=== PATIENT | male | born 1995 | race Caucasian/White ===

== ENCOUNTER 2017-05-30 17:36 | Emergency (ER) | payer BC ==
[2017-05-30 18:09] VITALS: BP 137/82
--- NOTE | 2017-05-30 18:52 | EDM.PDOCBH ---
ED HPI GENERAL MEDICAL PROBLEM - General Chief Complaint: Behavioral/Psych Stated Complaint: ANXIETY Time Seen by Provider: 05/30/17 18:10 Source of Information: Reports: Patient, RN Notes Reviewed - History of Present Illness INITIAL COMMENTS - FREE TEXT/NARRATIVE: 22-year-old male comes in with anxiety. He states he is been in [facility] recently, had been taking Lexapro prior to entering [facility]. During his time at [facility] that medication was not given. He states he was given "Vistaril". He states it did make him sleepy but he did also not like call "that made him feel". He is here today hoping to get started back on the Lexapro. He states he had previously been on that for about 2 years and believes that he actually had done quite well with that. At this time he has no suicidal thoughts or anything of that nature. No other complaints or concerns at this time - Related Data Allergies Allergy/AdvReac Type Severity Reaction Status Date / Time No Known Allergies Allergy Verified 05/30/17 18:09 Home Meds: Home Meds Escitalopram [Lexapro] 10 mg PO DAILY #30 tablet 05/30/17 [Rx] Past Medical History - Past Health History Medical/Surgical History: Denies Medical/Surgical History Other Gastrointestinal History: crohns Psychiatric History: Reports: Addiction, Anxiety Oncologic (Cancer) History: Reports: None - Infectious Disease History Infectious Disease History: Reports: None Social & Family History - Family History Family Medical History: Noncontributory - Tobacco Use Smoking Status *Q: Never Smoker - Caffeine Use Caffeine Use: Reports: Soda - Recreational Drug Use Recreational Drug Use: No Other Recreational Drug Type: Narcotic pain pill use in the past ED ROS GENERAL - Review of Systems Review Of Systems: See Below Constitutional: Reports: No Symptoms HEENT: Denies: Throat Pain, Vision Change Respiratory: Denies: Shortness of Breath Cardiovascular: Denies: Chest Pain GI/Abdominal: Denies: Nausea, Vomiting Musculoskeletal: Reports: No Symptoms Skin: Reports: No Symptoms Neurological: Denies: Headache, Numbness, Tingling Psychiatric: Reports: Anxiety. Denies: Depression, Suicidal Ideation ED EXAM, BEHAVIORAL HEALTH - Physical Exam Exam: See Below General Appearance: Alert, No Apparent Distress Eye Exam: Bilateral Eye: PERRL Throat/Mouth: Normal Inspection, Normal Oropharynx Head: Atraumatic Neck: Supple, Full Range of Motion Respiratory/Chest: No Respiratory Distress, Lungs Clear, Normal Breath Sounds Cardiovascular: Regular Rate, Rhythm GI/Abdominal: Soft, Non-Tender Extremities: Normal Inspection, Normal Range of Motion Neurological: Alert, Normal Mood/Affect, No Motor/Sensory Deficits, Oriented x 3 Psychiatric: Alert, Normal Affect, Normal Cognition, Normal Mood Skin Exam: Warm, Dry, Normal color COURSE, BEHAVIORAL HEALTH COMP - Course Vital Signs: Last Vital Signs Temp 98.5 F 05/30/17 18:02 Pulse 86 05/30/17 18:02 Resp 16 05/30/17 18:02 BP 137/82 05/30/17 18:02 Pulse Ox 98 05/30/17 18:02 Departure - Departure Time of Disposition: 18:49 Disposition: Home, Self-Care 01 Condition: Fair Clinical Impression: Anxiety - Discharge Information Prescriptions: Escitalopram [Lexapro] 10 mg PO DAILY #30 tablet Referrals: PCP,None [Primary Care Provider] - Forms: ED Department Discharge Additional Instructions: Leapro 10 mg daily has been electronically sent to [facility]. I do recomend starting at 5 mg, 1/2 tablet daily for the next 7 days, and than go to the full 10 mg daily. Follow up clinic as needed.
== END 2017-05-30 19:00 | disposition home or self-care (01) ==
LOC: JD.ED 17:36
DX: F41.9 Anxiety disorder, unspecified (principal); Z79.899 Other long term (current) drug therapy
CPT/HCPCS: 99283

== ENCOUNTER 2017-07-14 21:45 | Emergency (ER) | payer BC ==
[2017-07-14 22:09] VITALS: BP 122/79
[2017-07-14] MEDS ORDERED: Sodium Chloride 0.9% 1,000 ML IV SCH (23:00)
[2017-07-15] MEDS ORDERED: Ketorolac 30 MG/ML SDV IVPUSH STA (00:58)
--- NOTE | 2017-07-15 00:58 | EDM.PDOC ---
ED HPI GENERAL MEDICAL PROBLEM - General Chief Complaint: General Stated Complaint: ABDOMINAL PAIN Time Seen by Provider: 07/14/17 22:46 Source of Information: Reports: Patient, RN Notes Reviewed History Limitations: Reports: No Limitations - History of Present Illness INITIAL COMMENTS - FREE TEXT/NARRATIVE: The patient states that he has a history of Crohn disease, diagnosed by colonoscopy in 2014 at [facility]. He states that he was prescribed treatment that he only took for about one month, and has not taken any since, as he has not followed up. He states that he has been expressing abdominal pain and generalized abdominal pain for the past 3-4 weeks, along with sinus congestion and a sore throat for the past 2-3 days. He reports green liquidy bowel movements. He denies recent fever, cough, or urinary symptoms. He does not currently have a PCP, and has not sought medical treatment for his symptoms. The patient asked his nurse for pain medication, stating that Dilaudid works well for him. He would also like something to eat and drink. The medical records indicate that the patient has a history of opioid abuse. Generalized Pain Score (Numeric/FACES): 8 - Related Data Allergies Allergy/AdvReac Type Severity Reaction Status Date / Time No Known Allergies Allergy Verified 07/14/17 22:09 Home Meds: Home Meds . [No Known Home Meds] 07/14/17 [History] Past Medical History Gastrointestinal History: Reports: Inflammatory Bowel Disease (Crohn disease) Musculoskeletal History: Reports: Other (See Below) (Scoliosis) Psychiatric History: Reports: Addiction, Anxiety - Past Surgical History HEENT Surgical History: Reports: Oral Surgery ([place] teeth extraction) Social & Family History - Family History Family Medical History: Noncontributory - Tobacco Use Smoking Status *Q: Current Every Day Smoker Years of Tobacco use: 8 Packs/Tins Daily: 1 - Caffeine Use Caffeine Use: Reports: Soda - Alcohol Use Alcohol Use History: Yes Alcohol Use Frequency: Socially - Recreational Drug Use Recreational Drug Use: Yes Recreational Drug Type: Reports: Dilaudid, Oxycodone, Vicodin - Living Situation & Occupation Living situation: Reports: Single, Other (with his boss) Occupation: Employed ([employer]) ED ROS GENERAL - Review of Systems Review Of Systems: See Below Constitutional: Reports: No Symptoms. Denies: Fever HEENT: Reports: Sinus Problem, Throat Pain Respiratory: Reports: No Symptoms. Denies: Cough Cardiovascular: Reports: No Symptoms Endocrine: Reports: No Symptoms GI/Abdominal: Reports: Abdominal Pain (as per the HPI), Diarrhea : Reports: No Symptoms. Denies: Dysuria Musculoskeletal: Reports: No Symptoms Skin: Reports: No Symptoms Neurological: Reports: No Symptoms Psychiatric: Reports: No Symptoms Hematologic/Lymphatic: Reports: No Symptoms Immunologic: Reports: No Symptoms ED EXAM, GENERAL - Physical Exam Exam: See Below Exam Limited By: No Limitations General Appearance: Alert, WD/WN, No Apparent Distress Eye Exam: Bilateral Eye: Normal Inspection Ears: Normal External Exam, Normal Canal, Hearing Grossly Normal, Normal TMs Nose: Normal Inspection, Normal Mucosa, No Blood Throat/Mouth: Normal Inspection, Normal Lips, Normal Teeth, Normal Gums, Normal Oropharynx, Normal Voice, No Airway Compromise Head: Atraumatic, Normocephalic Neck: Normal Inspection, Supple, Non-Tender, Full Range of Motion. No: Lymphadenopathy (L), Lymphadenopathy (R) Respiratory/Chest: No Respiratory Distress, Lungs Clear, Normal Breath Sounds, No Accessory Muscle Use Cardiovascular: Normal Peripheral Pulses, Regular Rate, Rhythm, No Gallop, No JVD, No Murmur, No Rub Peripheral Pulses: 4+: Radial (L), Radial (R) GI/Abdominal: Normal Bowel Sounds, Soft, No Organomegaly, No Distention, No Abnormal Bruit, No Mass, Tender (minimal, generalized) (Male) Exam: Deferred Rectal (Males) Exam: Deferred Back Exam: Normal Inspection, Full Range of Motion. No: CVA Tenderness (L), CVA Tenderness (R) Extremities: Normal Inspection, Normal Range of Motion, No Pedal Edema, Normal Capillary Refill Neurological: Alert, Oriented, Normal Cognition, No Motor/Sensory Deficits Psychiatric: Normal Affect Skin Exam: Warm, Dry, Intact, Normal Color, No Rash Course - Vital Signs Last Recorded V/S: Last Vital Signs Temp 37.9 C 07/14/17 22:04 Pulse 97 07/14/17 22:04 Resp 18 07/14/17 22:04 BP 122/79 07/14/17 22:04 Pulse Ox 96 07/14/17 22:04 - Orders/Labs/Meds Orders: Active Orders 24 hr Category Date Time Status Chest 2V [CR] Stat Exams 07/14/17 22:58 Taken CULTURE STREP A CONFIRMATION [RM] Stat Lab 07/14/17 23:05 Results CULTURE URINE [] Stat Lab 07/15/17 01:02 Ordered STREP SCRN A RAPID W CULT CONF [] Stat Lab 07/14/17 23:05 Results Labs: Laboratory Tests 07/14/17 07/14/17 07/14/17 Range/Units 23:05 23:05 23:05 WBC 10.27 H (4.23-9.07) K/mm3 RBC 5.04 (4.63-6.08) M/mm3 Hgb 15.2 (13.7-17.5) gm/L Hct 44.2 (40.1-51.0) % MCV 87.7 (79.0-92.2) fl MCH 30.2 (25.7-32.2) pg MCHC 34.4 (32.2-35.5) g/dl RDW Std Deviation 41.9 (35.1-43.9) fL Plt Count 192 (163-337) K/mm3 MPV 11.5 (9.4-12.3) fl Neutrophils % (Manual) 74 H (40-60) % Band Neutrophils % 0 (0-10) % Lymphocytes % (Manual) 14 L (20-40) % Atypical Lymphs % 3 % Monocytes % (Manual) 8 (2-10) % Eosinophils % (Manual) 0 L (0.8-7.0) % Basophils % (Manual) 1 (0.2-1.2) Platelet Estimate Adequate Plt Morphology Comment Normal RBC Morph Comment Normal Sodium 137 (136-145) mEq/L Potassium 3.7 (3.5-5.1) mEq/L Chloride 104 (98-107) mEq/L Carbon Dioxide 27 (21-32) mEq/L Anion Gap 9.7 (5-15) BUN 11 (7-18) mg/dL Creatinine 1.0 (0.7-1.3) mg/dL Est Cr Clr Drug Dosing 110.20 mL/min Estimated GFR (MDRD) > 60 (>60) mL/min BUN/Creatinine Ratio 11.0 L (14-18) Glucose 105 (74-106) mg/dL Lactic Acid 1.3 (0.4-2.0) mmol/L Calcium 8.8 (8.5-10.1) mg/dL Total Bilirubin 1.3 H (0.2-1.0) mg/dL AST 18 (15-37) U/L ALT 38 (16-63) U/L Alkaline Phosphatase 74 (46-116) U/L C-Reactive Protein 3.8 H* (<1.0) mg/dL Total Protein 7.6 (6.4-8.2) g/dl Albumin 3.7 (3.4-5.0) g/dl Globulin 3.9 gm/dL Albumin/Globulin Ratio 1.0 (1-2) Lipase 117 (73-393) U/L Urine Color (Yellow) Urine Appearance (Clear) Urine pH (5.0-8.0) Ur Specific [place] (1.005-1.030) Urine Protein (Negative) Urine Glucose (UA) (Negative) Urine Ketones (Negative) Urine Occult Blood (Negative) Urine Nitrite (Negative) Urine Bilirubin (Negative) Urine Urobilinogen (0.2-1.0) Ur Leukocyte Esterase (Negative) Urine RBC (0-5) /hpf Urine WBC (0-5) /hpf Ur Epithelial Cells (0-5) /hpf Urine Bacteria (FEW) /hpf Urine Mucus (FEW) /hpf 07/14/17 Range/Units 23:05 WBC (4.23-9.07) K/mm3 RBC (4.63-6.08) M/mm3 Hgb (13.7-17.5) gm/L Hct (40.1-51.0) % MCV (79.0-92.2) fl MCH (25.7-32.2) pg MCHC (32.2-35.5) g/dl RDW Std Deviation (35.1-43.9) fL Plt Count (163-337) K/mm3 MPV (9.4-12.3) fl Neutrophils % (Manual) (40-60) % Band Neutrophils % (0-10) % Lymphocytes % (Manual) (20-40) % Atypical Lymphs % % Monocytes % (Manual) (2-10) % Eosinophils % (Manual) (0.8-7.0) % Basophils % (Manual) (0.2-1.2) Platelet Estimate Plt Morphology Comment RBC Morph Comment Sodium (136-145) mEq/L Potassium (3.5-5.1) mEq/L Chloride (98-107) mEq/L Carbon Dioxide (21-32) mEq/L Anion Gap (5-15) BUN (7-18) mg/dL Creatinine (0.7-1.3) mg/dL Est Cr Clr Drug Dosing mL/min Estimated GFR (MDRD) (>60) mL/min BUN/Creatinine Ratio (14-18) Glucose (74-106) mg/dL Lactic Acid (0.4-2.0) mmol/L Calcium (8.5-10.1) mg/dL Total Bilirubin (0.2-1.0) mg/dL AST (15-37) U/L ALT (16-63) U/L Alkaline Phosphatase (46-116) U/L C-Reactive Protein (<1.0) mg/dL Total Protein (6.4-8.2) g/dl Albumin (3.4-5.0) g/dl Globulin gm/dL Albumin/Globulin Ratio (1-2) Lipase (73-393) U/L Urine Color Yellow (Yellow) Urine Appearance Clear (Clear) Urine pH 7.5 (5.0-8.0) Ur Specific [place] 1.020 (1.005-1.030) Urine Protein 1+ H (Negative) Urine Glucose (UA) Negative (Negative) Urine Ketones Negative (Negative) Urine Occult Blood Negative (Negative) Urine Nitrite Negative (Negative) Urine Bilirubin Negative (Negative) Urine Urobilinogen 1.0 (0.2-1.0) Ur Leukocyte Esterase Negative (Negative) Urine RBC 0-5 (0-5) /hpf Urine WBC 0-5 (0-5) /hpf Ur Epithelial Cells 0-5 (0-5) /hpf Urine Bacteria Moderate H (FEW) /hpf Urine Mucus Moderate H (FEW) /hpf Meds: Medications Discontinued Medications Generic Name Dose Route Start Last Admin Trade Name Freq PRN Reason Stop Dose Admin Sodium Chloride 1,000 mls @ 150 mls/hr 07/14/17 23:00 07/14/17 23:11 Normal Saline IV 150 mls/hr ASDIRECTED BETSY Administration Ketorolac Tromethamine 30 mg 07/15/17 00:58 07/15/17 01:08 Toradol IVPUSH 07/15/17 00:59 30 mg ONETIME STA Administration - Re-Assessments/Exams Free Text/Narrative Re-Assessment/Exam: 07/14/17 23:20 Two-view chest radiograph reviewed. Cardiac silhouette is within normal limits. No pulmonary vascular congestion. No pleural effusions. No focal infiltrate. No pneumothorax. Significant scoliosis noted. Formal read per the Radiologist pending. 07/15/17 00:51 The patient's urinalysis shows moderate bacteria, although no nitrates, leukocyte esterase, or WBCs. I have ordered a urine culture, but I am not going to start him on an antibiotic based on these findings. The remainder of the patient's workup is unremarkable. His CRP is mildly elevated at 3.8, consistent with a viral illness. His WBC count is mildly elevated at 10.27, but with 0% bandemia. Clinically, I do not suspect a Crohn flare. I will refer him to Dr. Rico for further evaluation. Departure - Departure Time of Disposition: 00:58 Disposition: Home, Self-Care 01 Condition: Good Clinical Impression: Viral illness, Abnormal urinalysis - Discharge Information Referrals: PCP,Andres [Primary Care Provider] - Audra Rico [Physician] - Forms: ED Department Discharge Additional Instructions: You were seen in the emergency room for generalized aches and pains, sinus congestion, sore throat, and abdominal pain. Workup in the ER included blood work, a urinalysis, a rapid strep test, and influenza swab, and a chest x-ray. Your entire workup was unremarkable, consistent with a viral illness. Unfortunately, there are no treatments for a viral illness - it will have to run its course. We recommend you stay adequately hydrated. Take [id number] Tylenol or ibuprofen as needed for discomfort. Your urinalysis was abnormal, but not consistent with a urinary tract infection. A sample of your urine was sent for culture. We recommend you follow-up with Dr. torres in the clinic on Friday morning, 2016, to check on the urine culture results. If any other problems, please do not hesitate to return to the ER. - My Orders Last 24 Hours: My Active Orders 07/14/17 22:58 Chest 2V [CR] Stat 07/14/17 23:05 CULTURE STREP A CONFIRMATION [RM] Stat STREP SCRN A RAPID W CULT CONF [RM] Stat 07/15/17 01:02 CULTURE URINE [RM] Stat - Assessment/Plan Last 24 Hours: My Active Orders 07/14/17 22:58 Chest 2V [CR] Stat 07/14/17 23:05 CULTURE STREP A CONFIRMATION [] Stat STREP SCRN A RAPID W CULT CONF [] Stat 07/15/17 01:02 CULTURE URINE [RM] Stat
--- NOTE | 2017-07-15 07:15 | CR ---
Chest: Two views of the chest were obtained. Comparison: No previous study. Heart size and mediastinum are within normal limits. Lungs are clear with no acute infiltrates. Degenerative spurring is noted within the spine. Scoliosis is present within the spine. Impression: 1. Incidental findings. Nothing acute is appreciated. Diagnostic code #2
== END 2017-07-15 01:20 | disposition home or self-care (01) ==
LOC: JD.ED 21:45
DX: B34.9 Viral infection, unspecified (principal); R82.90 Unspecified abnormal findings in urine; F17.210 Nicotine dependence, cigarettes, uncomplicated
CPT/HCPCS: 36415; 71020; 80053; 81001; 83605; 83690; 85025; 86140; 87081; 87086; 87430; 87804; 96361; 96374; 99284; J1885; J7040; 99283